=== PATIENT | female | born 1935 | race Caucasian/White ===

== ENCOUNTER → 2018-03-06 | Outpatient (CLI) | payer OTHER ==
[~2018-03-06] MED LIST: BUTALB-APAP-CA1 EACH PO; LANOXIN 0.120.125 M1 PO; LASIX 40 MG TAB40 M2 PO; LEVAQUIN 500 M500 M2 PO; LOPRESSOR50 PO; MULTI VITAMIN1 EACH PO; OMEPRAZOLE 20 M20 M1 PO; ONDANSETRON HCL4 M2 PO; POTASSIUM20 PO; PRADAXA150 MG PO; TUMS PO; ULTRAM 50MG TAB50 MG PO
[2018-03-06 10:04] LABS: ABSOLUTE EOSINOPHILS 0.1 thou/uL (0.0-0.7); ABSOLUTE LYMPHOCYTES 1.4 thou/uL (0.8-5.3); ABSOLUTE MONOCYTES 0.3 thou/uL (0.0-1.2); ABSOLUTE NEUTROPHILS 2.6 thou/uL (1.6-8.1); BASOPHILS 0.9 %; EOSINOPHILS 1.7 %; HEMATOCRIT 42.2 % (37.0-47.0); HEMOGLOBIN 13.8 gm/dL (12.0-15.0); LYMPHOCYTES 31.2 %; MCH 30.2 pg (26.0-34.0); MCHC 32.6 g/dL (28.0-37.0); MCV 92.7 fL (80.0-100.0); MONOCYTES 7.8 %; MPV 8.8 fl. (7.2-11.1); NUCLEATED RBCS 0 /100WBC; PLATELET COUNT* 167 thou/uL (150-400); POLYS 58.4 %; RBC 4.55 mil/uL (4.20-5.00); RDW-CV 14.2 % (10.5-14.5); WBC 4.4 thou/uL (4.0-11.0)
[2018-03-06 10:17] LABS: ALBUMIN 3.5 g/dL (3.4-5.0); ALKALINE PHOSPHATASE 77 U/L (46-116); ANION GAP 7 mmol/L (7-16); BUN 16 mg/dL (7-18); CALCIUM 8.5 mg/dL (8.5-10.1); CHLORIDE 104 mmol/L (98-107); CHOLESTEROL 150 mg/dL (<200); CO2 31 mmol/L (21-32); CREATININE 0.8 mg/dL (0.6-1.3); GLUCOSE 87 mg/dL (70-99); HDL CHOLESTEROL 75 mg/dL (>40); LDL CHOLESTEROL 63 mg/dL (<100); SGOT 20 U/L (15-37); SGPT 17 U/L (30-65); SODIUM 142 mmol/L (136-145); TOTAL BILIRUBIN 0.8 mg/dL (<0.1-1.0); TRIGLYCERIDE 63 mg/dL (<150); VLDL 13 mg/dL (<40)
[2018-03-06 10:18] LABS: SERUM ASSESSMENT Clear
== END ==
LOC: M.LAB 09:42
PROVIDERS: Internal Medicine Cardiovascular Disease
DX: I48.2 Chronic atrial fibrillation (principal)